=== PATIENT | female | born 1985 | race Asian ===

== ENCOUNTER → 2019-05-05 18:27 | Outpatient (ROUT) | payer OTHER, SELFPAY ==
[2019-05-05 20:06] LABS: Urine N gonorrhoeae NOT DETECTED
[2019-05-05 20:17] LABS: Urine Chlamydia NOT DETECTED
== END ==
PROVIDERS: Visit Provider Specialist
DX: Z34.82 Encounter for supervision of other normal pregnancy, second trimester (principal)
CPT/HCPCS: 87491; 87591

== ENCOUNTER → 2019-06-12 15:26 | Outpatient (CLI) | payer OTHER, SELFPAY ==
[2019-06-12 17:55] LABS: Add Manual Diff / Slide Review NO; Basophils Absolute Auto 0 /uL (0-100); Basophils Percent Auto 0.4 % (0-2); Eosinophils Absolute Auto 100 /uL (0-450); Eosinophils Percent Auto 1.1 % (2-4); Hematocrit 30.5 % (36-46); Hemoglobin 10.8 g/dL (12.0-16.0); Lymphocytes Absolute Auto 1500 /uL (1100-4500); Lymphocytes Percent Auto 16.7 % (25-40); Mean Corpuscular HGB Conc 35.4 % (30-36); Mean Corpuscular Hemoglobin 30.3 PG (26-34); Mean Corpuscular Volume 85.5 fL (80-100); Monocytes Absolute Auto 500 /uL (0-900); Monocytes Percent Auto 5.1 % (3-14); Neutrophils Absolute Auto 7100 /uL (1500-7000); Neutrophils Percent Auto 76.7 % (50-75); Platelet Count 388 X10^3/uL (150-400); Red Blood Cell Count 3.57 X10^6/uL (4.0-5.2); Red Cell Distribution Width 12.7 % (11.6-14.8); White Blood Cell Count 9.2 X10^3/uL (4.5-11.0)
[2019-06-12 18:46] LABS: Hepatitis B Surface Antigen NEGATIVE s/c (NEGATIVE)
[2019-06-12 18:52] LABS: Appearance Urine UA CLEAR; Bilirubin Urine UA NEGATIVE (NEGATIVE); Color Urine UA YELLOW; Glucose Urine UA NEGATIVE (Negative); Ketones Urine UA 2+ (NEGATIVE); Leukocyte Esterase Urine UA NEGATIVE (NEGATIVE); Nitrite Urine UA NEGATIVE (Negative); Occult Blood Urine UA NEGATIVE (Negative); Protein Urine UA NEGATIVE (Negative); Specific Gravity Urine UA 1.025 (1.000-1.035); Urobilinogen Urine UA 0.2 E.U./dL (0.2)
[2019-06-12 19:00] LABS: HIV 1 & 2 Ab/Ag 4th Gen Combo NEGATIVE (NEGATIVE); Hep C Virus Ab w/Reflex Quant NEGATIVE s/c (NEGATIVE)
[2019-06-12 19:01] LABS: pH Urine UA 5.5 (4.5-8.0)
[2019-06-14 20:17] LABS: RPR Screen Nonreactive (Nonreactive)
[2019-06-19 09:54] LABS: AFP, Serum 76.4 ng/mL; Calc Gestational Age 20.9; Est Date Determined by US; Maternal Weight 135 lbs; Number of Fetuses 1; Prev Pregnancies Down Syndrome N
== END ==
PROVIDERS: Visit Provider Specialist
DX: Z34.82 Encounter for supervision of other normal pregnancy, second trimester (principal)
CPT/HCPCS: 36415; 80055; 81003; 82105; 86787; 86803; 86850; 86900; 86901; 87086; 87389

== ENCOUNTER → 2019-07-13 12:12 | Outpatient (CLI) | payer OTHER, SELFPAY ==
--- NOTE | 2019-07-13 12:13 | DI.US.S_ITS ---
PROCEDURE: US OB >= 14 WEEKS FETUS INDICATIONS: ANATOMY OUTSIDE/PRIOR DATING DATA: Last menstrual period (LMP): 01/17/19. LMP-based estimated date of delivery (STEPHANIE): 10/24/19. First dating scan (date and location): 05/05/19. Estimated date of delivery (STEPHANIE) from first dating scan: 10/30/19. TECHNIQUE: Real-time scanning was performed of the fetus, with image documentation and biometric measurements. Endovaginal scanning: No COMPARISON: [facility], , OB >= 14 WEEKS FETUS, 06/12/2019, 15:19. FINDINGS: General: A single living intrauterine gestation is present. Presentation: Breech. Placenta: Placental position is posterior, without previa. Amniotic fluid index: 15.7 cm, normal range is 5-24 cm. heart rate: 150 beats per minute. Maternal cervical canal: 3.3 cm cm long. Normal lower limit is 2.5 cm. biometrics: Biparietal diameter: 24 weeks 1 day Head circumference: 24 weeks 2 days Abdominal circumference: 23 weeks 3 days Femur length: 24 weeks 5 days Estimated gestational age from initial scan: 24 weeks 3 days Composite gestational age from present scan: 24 weeks 1 day Estimated weight and percentile: 656 g; 25th percentile Measurement variability for biometric dating: +/- 7 days from 14 weeks to 15 weeks 6 days gestation, +/- 10 days from 16 weeks to 21 weeks 6 days gestation, +/- 2 weeks from 22 weeks to 27 weeks 6 days gestation, +/- 3 weeks for 28 weeks gestation or later. weight reference: 4500 g or EFW >90/95% is considered macrosomia or large for gestational age. EFW <10% is small for gestational age. EFW 5% or less is considered intra-uterine growth restriction. Anatomic survey: Neuro: Ventricles are non-dilated at less than 10 mm. Cisterna magna is normal at 3-11 mm. Cerebellum is normal in size and morphology. Nuchal skin fold: Normal at less than 6 mm between 14-21 weeks gestational age. Face: Nose and lips, facial profile are normal. Spine: No evidence for spina bifida. Heart: 4-chambered heart is present, with normal ventricular outflow tracts. Diaphragm: Diaphragm is intact. Stomach: Left-sided stomach is present. Kidneys: No hydronephrosis. Normal is less than 5 mm in 2nd trimester, less than 7 mm in 3rd trimester. Cord: 3-vessel cord has orthotopic insertion. Bladder: Normal in size. Extremities: All 4 extremities identified. IMPRESSION: 1. Single living IUP redemonstrated and interval growth is normal. 2. Normal anatomic survey. Dictated by: Bennie Vázquez [facility] Interpreted: Palomo Denny MD on 07/14/2019 at 8:59 Approved by: Palomo Denny M.D. on 07/14/2019 at 11:22
== END ==
PROVIDERS: Referring Provider Specialist; Visit Provider Specialist
DX: Z34.82 Encounter for supervision of other normal pregnancy, second trimester (principal); Z3A.24 24 weeks gestation of pregnancy
CPT/HCPCS: 36415; 76811; 82950; 85014; 85018

== ENCOUNTER → 2019-07-13 13:47 | Outpatient (CLI) | payer OTHER, SELFPAY ==
[2019-07-13 15:38] LABS: Hematocrit 33.5 % (36-46); Hemoglobin 11.7 g/dL (12.0-16.0)
[2019-07-13 16:05] LABS: GTT (PREG) 1 Hour PP 50gm Dose 107 mg/dL (76-139)
== END ==
PROVIDERS: Referring Provider Specialist; Visit Provider Specialist
DX: Z34.82 Encounter for supervision of other normal pregnancy, second trimester (principal)
CPT/HCPCS: 36415; 82950; 85014; 85018

== ENCOUNTER → 2019-10-02 08:26 | Outpatient (CLI) | payer OTHER, SELFPAY ==
[2019-10-03 08:02] LABS: Strep Grp B PCR NEG for Grp B Strep
== END ==
PROVIDERS: Visit Provider Specialist
DX: Z34.83 Encounter for supervision of other normal pregnancy, third trimester (principal)
CPT/HCPCS: 87653

== ENCOUNTER 2019-10-15 20:47 | Inpatient (IN) | payer OTHER, SELFPAY ==
--- NOTE | 2019-10-15 21:14 | PM.OBHP.1 ---
OB HPI Date/Time Date of admission: 10/15/19 Date Patient Seen: 10/15/19 Time Patient Seen: 21:14 History of Present Condition Chief complaint: EVAL OF LABOR : 2 Para: 1 Estimated Date of Delivery: 10/30/19 Estimated Gestational Age (weeks): 37 Narrative: Edmond Ry Lopez is a 34 year old female admitted with spontaneous rupture membranes not in active labor History of Present care: good care, initiated at week # (15), number of visits (9) and pounds weight gain (36) Dating criteria: LMP confirmed by 2nd trimester US Ultrasounds: normal mid trimester US Obstetrical complications: none Medical complications: none Preadmission Labs Blood type: A (+) positive -: Antibody screen: negative, GBS status: negative, HBsAG: negative, HIV: negative and RPR/VDLR: negative -: Chlamydia screen: not detected and Gonorrhea screen: not detected -: Rubella: immune HCAB: negative Quad screen: Normal 1 hr GTT: 107 Prior (ies) History: 03/10/2018 female infant vaginal delivery 39 week 7 lb 3oz Evaluation Evaluation Baseline heart rate: 145 Variability: Moderate (11-25) monitor accelerations: Present monitor decelerations: Absent Contraction Frequency (minutes): 10 Uterine Contraction Intensity: Mild Category of Tracing: I Cervical dilation (cm): 0 Cervical effacement (%): 50 station: -4 Non-invasive Membranes Rupture Test: positive [facility] Medical History (Updated 08/10/19 @ 15:18 by Heidy Blackwell MD) Precipitous delivery (Acute) Surgical History (Updated 05/02/19 @ 15:26 by Patricia Lopez RN) H/O wisdom tooth extraction (Acute) Family History (Updated 05/02/19 @ 15:29 by Patricia Lopez RN) Father Cancer Grandfather Hypertension Social History marital status: number of children: 1 household members: spouse and children occupational status: employed current occupational exposures/hazards: No special sujit needs: No Smoking Status: Never smoker Meds Home Medications and Allergies Home Medications Medication Instructions Recorded Confirmed Type prenat.vits,juan ramon,[id number] 1 tab PO DAILY 05/02/19 10/09/19 History Allergies Allergy/AdvReac Type Severity Reaction Status Date / Time No Known Drug Allergies Allergy Verified 09/20/19 12:00 Review of Systems Review of Systems Narrative: Patient has had good movement. She had spontaneous rupture membranes approximately 2 and a half hours ago. No headaches, scotomata, epigastric pain. No fevers. ROS: Yes All systems reviewed with the patient and are negative except as otherwise documented Exam Vital Signs (past 8 hours): Blood pressure 130/75, pulse 75 temperature 98.3? Narrative Exam Narrative: HEENT exam within normal limits. Lungs are clear to auscultation percussion. Heart is regular rate and rhythm no S3-S4 or murmurs. Fetus is vertex. Extremities without edema and nontender. Assessment and Plan Assessment and Plan Assessment and Plan narrative: 37 and 6 weeks gestation with spontaneous rupture membranes 2-1/2 hours ago with no spontaneous labor yet. Admit will do coronavirus testing. Wait for active labor. Anticipate vaginal delivery.
[2019-10-15 23:12] LABS: COVID19 -Nasal RAPID Negative (Negative)
[2019-10-16 01:29] LABS: Add Manual Diff / Slide Review NO; Basophils Absolute Auto 100 /uL (0-100); Basophils Percent Auto 0.6 % (0-2); Eosinophils Absolute Auto 300 /uL (0-450); Eosinophils Percent Auto 2.4 % (2-4); Hematocrit 33.8 % (36-46); Hemoglobin 11.8 g/dL (12.0-16.0); Lymphocytes Absolute Auto 1700 /uL (1100-4500); Lymphocytes Percent Auto 15.6 % (25-40); Mean Corpuscular HGB Conc 34.7 % (30-36); Mean Corpuscular Hemoglobin 30.2 PG (26-34); Mean Corpuscular Volume 86.8 fL (80-100); Monocytes Absolute Auto 700 /uL (0-900); Monocytes Percent Auto 6.7 % (3-14); Neutrophils Absolute Auto 8200 /uL (1500-7000); Neutrophils Percent Auto 74.7 % (50-75); Platelet Count 373 X10^3/uL (150-400); Red Cell Distribution Width 12.8 % (11.6-14.8)
--- NOTE | 2019-10-16 02:06 | P.PCNOB_ITS ---
Labor & Delivery Delivery date: 10/16/19 Intrapartal events: Precipitous Labor < 3 hours Delivery monitor: external FHT and external uterine Route of delivery: L&D Laceration Description: None Estimated blood loss (mL): 100 Anesthesia type: None Narrative: Patient arrived on Labor and delivery with spontaneous rupture membranes at 1900 on 10/15/2019. She was not liliane. Patient then had a sudden onset of contractions and had a precipitous delivery in bed. heart tones category 1 to category 2. The baby was placed on the maternal abdomen after releasing a nuchal cord. After the cord stopped pulsating the cord was clamped, cut, and cord bloods obtained. The placenta delivered spontaneously, intact, with 3 vessels. There were no cervical, vaginal, or perineal tears. Both mother doing well. [place] Baby 1: Infant gender: Female Presentation: vertex position: Right Occiput Anterior Placenta delivery description: Spontaneous cord vessel description: Nuchal Cord score (1 min): 8 score (5 min): 9 Plan for aftercare: Routine care
[2019-10-16] MEDS: OXYTOCIN 10 UNIT/ML VIAL 20 UNIT (02:35)
[2019-10-16] MEDS: DERMOPLAST SPRAY 20% 60 ML 1 SPRAY TOP (07:44)
--- NOTE | 2019-10-16 15:51 | P.DS_ITS ---
Discharge Providers Provider Date of admission: 10/15/19 20:47 Discharge Date: 10/16/19 Primary care physician: Heidy Blackwell MD Consults: 10/15/19 21:58 Consult to Anesthesiology Urgent Comment: Consulting Provider: Anesthesiologist Reason for consultation: Epidural Has provider been notified: No 10/17/19 02:04 Consult to Apprentice Painter Brush Routine Comment: Discharge provider: Heidy Blackwell MD Summary Hospital Course Date Patient Seen: 10/16/19 Time Patient Seen: 15:52 Procedures: Vaginal delivery Hospital Course: Patient arrived on Labor and delivery after spontaneous rupture membranes. She had a precipitous vaginal delivery. She is doing well . She denies headaches, scotomata, epigastric pain. She is breast-feeding well. Peripartum Data Infant Delivery Method: Natural Vaginal Laceration description: None Procedures: Spontaneous vaginal delivery complications: none 1: Gender: Female Disposition of : home Discharge Diagnosis (1) Vaginal delivery: Status: Acute Status at Discharge Cognitive/behavioral status at discharge: oriented Functional status at discharge: independent ambulation Overall status at discharge: patient is progressing back to baseline Time Spent with Patient Time attestation: Total time spent providing and/or coordinating discharge services: Time spent: Less than 30 minutes Objective Labs Result Diagrams: 10/16/19 00:30 Labs: Laboratory Results - last 24 hr 10/15/19 10/16/19 10/16/19 22:10 00:30 00:30 WBC 11.0 RBC 3.90 L Hgb 11.8 L Hct 33.8 L MCV 86.8 MCH 30.2 MCHC 34.7 RDW 12.8 Plt Count 373 Neut % (Auto) 74.7 Lymph % (Auto) 15.6 L [place] % (Auto) 6.7 Eos % (Auto) 2.4 Baso % (Auto) 0.6 Neut # (Auto) 8200 H Lymph # (Auto) 1700 [place] # (Auto) 700 Eos # (Auto) 300 Baso # (Auto) 100 COVID-19 PCR Negative Blood Type A Positive Antibody Screen Negative Exam Vital Signs (past 8 hours): Blood pressure is 125/75, pulse of 79, temperature 98.3? Narrative Exam Narrative: Abdomen is soft, nontender. Uterus is firm, U -2, nontender. Mild lochia. Extremities without edema and nontender. Patient's blood type is A positive, she is rubella immune, she declines a Tdap Discharge Plan Discharge Plan Patient Disposition: Home Discharge orders & Medications Prescriptions: Continued prenat.vits,juan ramon,[id number] Tablet 1 tab PO DAILY RF: 0 Follow up/Referrals: Heidy Blackwell MD [Primary Care Provider] - 1 Month Diet/Activity/Treatments Diet: Regular Activity: Nothing in vagina for 4 weeks Skin/Wound/Dressing Care Report to your healthcare provider any signs of infection, such as:: chills, fever and increased pain Discharge Data Primary Care Provider: Heidy Blackwell
[2019-10-16 17:20] VITALS: BP 127/76; PULSE 65; RESP 16; TEMP 37.5
[2019-10-16 17:34] VITALS: BP 122/84
== END 2019-10-16 18:10 | disposition home or self-care (01) | DRG 807 ==
PROVIDERS: Admitting Provider Specialist; PCP Specialist; Referring Provider Family Medicine; Visit Provider Specialist
DX: O42.02 Full-term premature rupture of membranes, onset of labor within 24 hours of rupture (principal); Z37.0 Single live birth; Z3A.37 37 weeks gestation of pregnancy; O62.3 Precipitate labor; O69.81X0 Labor and delivery complicated by cord around neck, without compression, not applicable or unspecified; Z11.59 Encounter for screening for other viral diseases
CPT/HCPCS: 59050; 59400; 84112; 85025; 86850; 86900; 86901; 87635; G0379; J2590